=== PATIENT | female | born 1980 | race African-American/Black ===

== ENCOUNTER 2019-12-01 10:08 | Emergency (ER) | payer SELFPAY ==
--- NOTE | 2019-12-01 10:28 | ER Document Report ---
HPI - HPI Onset: Yesterday Onset/Duration: Gradual Severity: Mild Context: 39-year-old female presented to ED for cough congestion, runny nose, fever, headache, body aches, abdominal pain, nausea vomiting, shortness of breath with tightness. She does smoke a pack a day and has a history of bronchitis. The patient was evaluated during the global Covid 19 pandemic, and that diagnosis was suspected/considered upon their initial presentation. Their evaluation, treatment and testing was consistent with current guidelines for patients who present with complaints or symptoms that may be related to Covid 19. Associated Symptoms: Body/muscle aches, Nonproductive cough, Fever, Headache, Nausea, Vomiting, Rhinnorhea, Shortness of breath, Other - [place] pain Exacerbated by: Denies Relieved by: Denies Similar symptoms previously: No - CONSTITUTIONAL Constitutional: REPORTS: Fever, Chills - EENT EENT: REPORTS: Nasal Drainage-Purulent, Congestion - NEURO Neurology: REPORTS: Headache - RESPIRATORY Respiratory: REPORTS: Coughing - GASTROINTESTINAL Gastrointestinal: REPORTS: Patient vomiting. DENIES: Diarrhea - REPRODUCTIVE Reproductive: DENIES: : - MUSCULOSKELETAL Notes: Body aches - DERM Skin Color: Normal Skin Problems: None Past Medical History - General Information source: Patient - Social History Smoking Status: Current Every Day Smoker Cigarette use (# per day): Yes - ppd Smoking Education Provided: Yes - 4 min Lives with: Family Family History: CAD, CVA, DM, Hyperlipidemia, Hypertension, Malignancy, Thyroid Disfunction Pulmonary Medical History: Reports: Hx Bronchitis Neurological Medical History: Reports: Hx Migraine Renal/ Medical History: Reports: Hx Ovarian Cysts Past Surgical History: Reports: Hx Tubal Ligation - Immunizations Immunizations up to date: Yes Hx Diphtheria, Pertussis, Tetanus Vaccination: Yes Vertical Provider Document - CONSTITUTIONAL Agree With Documented VS: Yes - INFECTION CONTROL TRAVEL OUTSIDE OF THE [place] IN LAST 30 DAYS: No - HEENT HEENT: Atraumatic Notes: Rhinorrhea, postnasal drip, planes of itchy eyes - RESPIRATORY Respiratory: Breath Sounds Normal, No Respiratory Distress, Chest Non-Tender - CARDIOVASCULAR Cardiovascular: Regular Rate, Regular Rhythm - GI/ABDOMEN Gastrointestinal: Abdomen Soft, Abdomen Non-Tender, No Organomegaly, Normal Bowel Sounds - NEURO Level of Consciousness: Awake, Alert, Appropriate - DERM Integumentary: Warm, Dry Course - Re-evaluation Re-evalutation: 12/01/19 10:45 Patient presents with upper respiratory symptoms. Patient does not have emergency worring symptoms such as difficulty breathing, shortness of breath, chest pain, pressure, confusion or cyanosis. Patient appears suitable for discharge. Patient's vital signs are stable and patient is nontoxic in appearance. Good return precautions have been discussed with patient, patient verbalized understanding and is agreeable with discharge plan of care at this time. 12/01/19 10:47 12/01/19 12:23 Discharge - Discharge Clinical Impression: Viral respiratory illness Condition: Stable Disposition: HOME, SELF-CARE Additional Instructions: UPPER RESPIRATORY ILLNESS: You have a viral infection of the respiratory passages -- a "cold." This common infection causes nasal congestion, drainage, and often sore throat and cough. It is highly contagious. The disease usually lasts about 10 to 14 days. There is no "cure" for the viral infection -- it must run its course. If there is a complication, such as bacterial infection in the nose, sinuses, middle ear, or bronchial tubes, antibiotics may be required. The antibiotics won't affect the virus. Drink plenty of fluids. A humidifier may help. An expectorant medication or decongestant may make you more comfortable. Use acetaminophen or ibuprofen for fever or aches. See the doctor if fever persists over two days, if there is any significant worsening of your symptoms, or if you simply fail to improve as expected. You have been recommended treatment with Claritin 10 mg Sudafed 30 mg and Mucinex 600 mg. These are all glze-njn-mcbcfyz medications for cough cold congestion. You do need to call the go to the pharmacist to get the Sudafed from behind the counter please get a little red pills they are more effective. You could also use Flonase which is dtqk-[id number]-odjcfls 1 spray each nostril twice a day. You could also use salt soda solution gargles. These will help to remove the drainage from the back your throat. Chloraseptic spray was qmfr-gny-yndndok that will also help with your sore throat. Salt and soda solution gargle 1 quart of water 1 tablespoon of salt 1 teaspoon of baking soda Mixed 3 ingredients together and boil for 1 minute Placed in a covered quart jar Use 1/2 ounce of cold solution to gargle 3 times a day USE OF ACETAMINOPHEN (Tylenol): Acetaminophen may be taken for pain relief or fever control. It's much safer than aspirin, offering a wider range of "safe" dosages. It is safe during . Some brand names are Tylenol, Panadol, Datril, Anacin 3, Tempra, and Liquiprin. Acetaminophen can be repeated every four hours. The following are maximum recommended dosages: >89 pounds or adults 650 mg to 900 mg Acetaminophen can be repeated every four hours. Maximum dose not to exceed 4000 mg a day. SMOKING: If you smoke, you should stop smoking. The tar and chemicals in cigarette smoke are harmful. Smoking has been shown to cause: emphysema chronic bronchitis lung cancer mouth and throat cancer stomach and pancreas cancer premature aging defects In addition, smoking increases ear and lung infections in children of smokers. FOLLOW-UP CARE: If you have been referred to a physician for follow-up care, call the physicians office for an appointment as you were instructed or within the next two days. If you experience worsening or a significant change in your symptoms, notify the physician immediately or return to the Emergency Department at any time for re-evaluation. Referrals: LOCALMD,NO [Primary Care Provider] - Follow up as needed
[2019-12-01 10:56] VITALS: BP 108/58
[2019-12-01 12:19] LABS: A TYPE INFLUENZA AG NEGATIVE (NEGATIVE); B INFLUENZA AG NEGATIVE (NEGATIVE)
== END 2019-12-01 14:59 | disposition home or self-care (01) ==
LOC: EDRDC 10:08
DX: J98.8 Other specified respiratory disorders (principal); B97.89 Other viral agents as the cause of diseases classified elsewhere; Z20.828 Contact with and (suspected) exposure to other viral communicable diseases; R05 Cough; R50.9 Fever, unspecified; R51 Headache; R10.9 Unspecified abdominal pain; R11.2 Nausea with vomiting, unspecified; R06.02 Shortness of breath; M79.10 Myalgia, unspecified site; R09.82 Postnasal drip; J34.89 Other specified disorders of nose and nasal sinuses; F17.210 Nicotine dependence, cigarettes, uncomplicated; Z71.6 Tobacco abuse counseling
CPT/HCPCS: 87070; 87635; 87804; 87880; 99201

== ENCOUNTER 2020-03-15 12:30 | Emergency (ER) | payer BC, SELFPAY ==
[2020-03-15] MEDS ORDERED: NORMAL SALINE 1000 ML 1,000 ML IV ONE (13:11)
[2020-03-15] MEDS ORDERED: METOCLOPRAMIDE HCL INJ/PF 10 MG/2 ML SDV IV ONE (13:12)
--- NOTE | 2020-03-15 13:15 | ER Document Report ---
ED GI/ - General Chief Complaint: Diarrhea Stated Complaint: ABDOMINAL PAIN/DIARRHEA Time Seen by Provider: 03/15/20 13:08 Mode of Arrival: Ambulatory Notes: This a 39-year-old female presented to the emergency room today stating she had upper abdominal discomfort which is been intermittent over the last 4 to 5 days she noticed that more so today while she was at work it is associated with some alternating constipation and diarrhea she has no nausea no vomiting she has no difference in appetite TRAVEL OUTSIDE OF THE [place] IN LAST 30 DAYS: No - HPI Patient complains to provider of: Abdominal pain, Diarrhea - Alternating with constipation Onset: Other - 4 to 5 days - Related Data Allergies/Adverse Reactions: Penicillins Allergy (Unknown, Verified 03/15/20 13:20) Past Medical History - General Information source: Patient - Social History Smoking Status: Current Every Day Smoker Cigarette use (# per day): Yes - 20 Chew tobacco use (# tins/day): No Smoking Education Provided: Yes Frequency of alcohol use: Occasional Drug Abuse: None Family History: CAD, CVA, DM, Hyperlipidemia, Hypertension, Malignancy, Thyroid Disfunction Pulmonary Medical History: Reports: Hx Bronchitis Neurological Medical History: Reports: Hx Migraine Renal/ Medical History: Reports: Hx Ovarian Cysts Past Surgical History: Reports: Hx Tubal Ligation - Immunizations Immunizations up to date: Yes Hx Diphtheria, Pertussis, Tetanus Vaccination: Yes Review of Systems - Review of Systems Constitutional: Malaise EENT: No symptoms reported Cardiovascular: No symptoms reported Respiratory: No symptoms reported Gastrointestinal: Diarrhea, Nausea Genitourinary: No symptoms reported Female Genitourinary: No symptoms reported Musculoskeletal: No symptoms reported Skin: No symptoms reported Hematologic/Lymphatic: No symptoms reported Neurological/Psychological: No symptoms reported Physical Exam - Vital signs Vitals: Temp Pulse Resp BP Pulse Ox 99.1 F 82 16 119/86 H 100 03/15/20 12:59 03/15/20 12:59 03/15/20 12:59 03/15/20 12:59 03/15/20 12:59 Interpretation: Normal - General General appearance: Appears well, Alert - HEENT Head: Normocephalic, Atraumatic Eyes: Normal Pupils: PERRL - Respiratory Respiratory status: No respiratory distress Chest status: Nontender Breath sounds: Normal Chest palpation: Normal - Cardiovascular Rhythm: Regular Heart sounds: Normal auscultation Murmur: No - Abdominal Inspection: Normal Distension: No distension Bowel sounds: Normal Tenderness: Nontender, Other - She describes the discomfort as upper right quadrant in nature when she has it.. No: Tender, McBurney's point, Oh's sign, Guarding Organomegaly: No organomegaly - Back Back: Normal, Nontender - Extremities General upper extremity: Normal inspection, Nontender, Normal color, Normal ROM, Normal temperature General lower extremity: Normal inspection, Nontender, Normal color, Normal ROM, Normal temperature, Normal weight bearing. No: Andrews's sign - Neurological Neuro grossly intact: Yes Cognition: Normal Orientation: AAOx4 [place]coe Coma Scale Eye Opening: Spontaneous Roscoe Coma Scale Verbal: Oriented Fifi Coma Scale Motor: Obeys Commands Roscoe Coma Scale Total: 15 Speech: Normal Motor strength normal: LUE, RUE, LLE, RLE Sensory: Normal - Psychological Associated symptoms: Normal affect, Normal mood - Skin Skin Temperature: Warm Skin Moisture: Dry Skin Color: Normal Course - Re-evaluation Re-evalutation: 03/15/20 17:43 Patient is resting comfortably in the room we discussed the findings of her CT she states that she knows she has a hemangioma and a mass by her liver she has had a tested and it is negative I told her that she must follow-up with that and have it reimaged again. And that we would be referring her to a GI specialist. She does have a MEDICAL ORDERLY she sees Dr. Uribe she was advised that she need to follow-up with Dr. Uribe and 3 to 4 weeks so they can consider reimaging the ovarian area. She was also referred to the health department she was told that she needed a routine physician she needed to follow-up with for definitive radiology readings and follow-up on all accounts until complete resolution as well as all general routine health needs. She was advised that anyone of these lesions could be anything from an incidental finding leading up to and including a carcinoma which could potentially lead to a fatal outcome. - Vital Signs Vital signs: Temp Pulse Resp BP Pulse Ox 99.1 F 82 16 119/86 H 100 03/15/20 12:59 03/15/20 12:59 03/15/20 12:59 03/15/20 12:59 03/15/20 12:59 - Laboratory Result Diagrams: 03/15/20 13:30 03/15/20 13:30 Laboratory results interpreted by me: 03/15/20 03/15/20 13:30 13:30 Total Protein 8.4 H Albumin 5.3 H Urine Ketones 20 H Labs- All tests 24 hr 03/15/20 03/15/20 03/15/20 13:30 13:30 13:30 WBC 5.9 RBC 4.37 Hgb 14.4 Hct 42.0 MCV 96 MCH 32.9 MCHC 34.3 RDW 13.0 Plt Count 215 Lymph % (Auto) 29.2 [place] % (Auto) 5.7 Eos % (Auto) 1.1 Baso % (Auto) 0.5 Absolute Neuts (auto) 3.7 Absolute Lymphs (auto) 1.7 Absolute Monos (auto) 0.3 Absolute Eos (auto) 0.1 Absolute Basos (auto) 0.0 Seg Neutrophils % 63.5 Sodium 137.5 Potassium 4.6 Chloride 102 Carbon Dioxide 27 Anion Gap 9 BUN 11 Creatinine 0.82 Est GFR ( Amer) > 60 Est GFR (MDRD) Non-Af > 60 Glucose 87 Calcium 10.1 Total Bilirubin 0.9 Direct Bilirubin 0.0 Neonat Total Bilirubin Not Reportable Neonat Direct Bilirubin Not Reportable Neonat Indirect Bili Not Reportable AST 29 ALT 18 Alkaline Phosphatase 62 Total Protein 8.4 H Albumin 5.3 H Urine Color YELLOW Urine Appearance CLEAR Urine pH 5.0 Ur Specific Hannah 1.027 Urine Protein NEGATIVE Urine Glucose (UA) NEGATIVE Urine Ketones 20 H Urine Blood NEGATIVE Urine Nitrite NEGATIVE Urine Bilirubin NEGATIVE Urine Urobilinogen NEGATIVE Ur Leukocyte Esterase NEGATIVE Urine WBC (Auto) 1 Urine RBC (Auto) 0 Urine Bacteria (Auto) TRACE Squamous Epi Cells Auto 1 Urine Mucus (Auto) OCC Urine Ascorbic Acid NEGATIVE - Diagnostic Test Radiology results interpreted by me: 03/15/20 17:45 Abdomen/Pelvis CT 03/15/20 13:53 IMPRESSION: 1. No bowel obstruction. Wall thickening at the distal small bowel, suggestive of enteritis. 2. 4.4 cm cystic lesion at the left adnexa. Follow-up with pelvic ultrasound in 6-12 weeks to ensure resolution. 3. Trace free pelvic fluid. 4. 1.5 cm hypodense lesion with peripheral enhancement at the right hepatic lobe, probably corresponding to previously described hemangioma. Additional enhancing foci at the right and left hepatic lobes, may represent flash filling hemangiomas. Follow-up dedicated CT liver in 3-6 months recommended to ensure stability and exclude a different etiology. Discharge - Discharge Clinical Impression: Nausea vomiting and diarrhea Condition: Fair Disposition: HOME, SELF-CARE Instructions: Diarrhea, Nonspecific ([facility]), Reglan ([facility]), Vomiting ([facility]) Additional Instructions: Patient must follow-up with Dr. Uribe in 3 to 4 weeks to set up repeat imaging of the ovarian area. Patient is also been referred to Dr. Joseph for follow-up imaging of the lesion by her liver. Patient was advised to follow-up with a primary doctor to quarterback any and all healthcare needs including the above findings and all other needs that may arise and that she certainly needs to make sure that the above findings are followed through until complete resolution and that failure to do so if the lesions were malignant could lead to a poor outcome including of their cancers Prescriptions: Metoclopramide HCl [Reglan 10 mg Tablet] 10 mg PO ACHS #120 tablet Referrals: HEALTH DEPT,[facility] [NO LOCAL MD] - Follow up as needed
[2020-03-15 14:08] LABS: ABSOLUTE EOSINOPHILS # (AUTO) 0.1 10^3/uL (0.0-0.6); ABSOLUTE LYMPHOCYTES (AUTO) 1.7 10^3/uL (0.5-4.7); ABSOLUTE MONOCYTES (AUTO) 0.3 10^3/uL (0.1-1.4); ABSOLUTE NEUT (AUTO) 3.7 10^3/uL (1.7-8.2); BASOPHILS % (AUTO) 0.5 % (0-2); EOSINOPHILS % (AUTO) 1.1 % (0-6); HEMOGLOBIN 14.4 g/dL (12.0-15.5); LYMPHOCYTES % (AUTO) 29.2 % (13-45); MEAN CORPUSCULAR HEMOGLOBIN 32.9 pg (27.0-33.4); MEAN CORPUSCULAR HGB CONC 34.3 g/dL (32.0-36.0); MEAN CORPUSCULAR VOLUME 96 fl (80-97); MONOCYTES % (AUTO) 5.7 % (3-13); PLATELET COUNT 215 10^3/uL (150-450); RED BLOOD COUNT 4.37 10^6/uL (3.72-5.28); SEGMENTED NEUTROPHILS % (AUTO) 63.5 % (42-78); TOTAL CELLS COUNTED % (AUTO) 100 %; WHITE BLOOD COUNT 5.9 10^3/uL (4.0-10.5)
[2020-03-15 14:14] LABS: APPEARANCE,URINE CLEAR; BILIRUBIN,URINE NEGATIVE (NEGATIVE); COLOR,URINE YELLOW; GLUCOSE, URINE NEGATIVE (NEGATIVE); KETONES,URINE 20 mg/dL (NEGATIVE); LEUKOCYTE ESTERASE,URINE NEGATIVE (NEGATIVE); NITRITE,URINE NEGATIVE (NEGATIVE); PROTEIN,URINE NEGATIVE (NEGATIVE); URINE SPECIFIC GRAVITY 1.027; UROBILINOGEN,URINE NEGATIVE mg/dL (<2.0)
[2020-03-15 14:27] LABS: ALBUMIN 5.3 g/dL (3.5-5.0); ALKALINE PHOSPHATASE 62 U/L (38-126); ANION GAP 9 (5-19); ASPARTATE AMINO TRANSFERASE 29 U/L (14-36); BILIRUBIN,TOTAL 0.9 mg/dL (0.2-1.3); BLOOD UREA NITROGEN 11 mg/dL (7-20); CALCIUM 10.1 mg/dL (8.4-10.2); CARBON DIOXIDE 27 mmol/L (22-30); CHLORIDE 102 mmol/L (98-107); GLUCOSE 87 mg/dL (75-110); POTASSIUM 4.6 mmol/L (3.6-5.0); TOTAL PROTEIN 8.4 g/dL (6.3-8.2)
--- NOTE | 2020-03-15 17:35 | RADIOLOGY REPORT (SQ) ---
EXAM DESCRIPTION: CT ABD/PELVIS WITH IV ORAL IMAGES COMPLETED DATE/TIME: 03/15/2020 5:03 pm REASON FOR STUDY: pain Diffuse abdominal pain. Prior hysterectomy. COMPARISON: CT abdomen and pelvis 03/21/2015, 02/20/2013. MRI abdomen 04/24/2013. TECHNIQUE: CT scan of the abdomen and pelvis performed using helical scanning technique with dynamic intravenous contrast injection and with oral contrast. Images reviewed with lung, soft tissue, and b one windows. Reconstructed coronal and sagittal MPR images reviewed. Delayed images for evaluation of the urinary system also acquired. All images stored on PACS. All CT scanners at this facility use dose modulation, iterative reconstruction, and/or weight based d osing when appropriate to reduce radiation dose to as low as reasonably achievable (ALARA). [facility]: Dose Right [facility]: CareDose [facility]: Dose Right [facility]: Teradose 4D [facility]: [employer] CONTRAST TYPE AND DOSE: contrast/concentration: Isovue 350.00 mmol/ml; Total Contrast Delivered: 69. 0 ml; Total Saline Delivered: 65.0 ml RENAL FUNCTION: Creatinine 0.82 RADIATION DOSE: CT Rad equipment meets quality standard of care and radiation dose reduction techniq ues were employed. CTDIvol: 4.8 - 5.2 mGy. DLP: 491 mGy-cm.. LIMITATIONS: None. FINDINGS: LOWER CHEST: No consolidation or pleural effusion. LIVER: There is a 1.5 x 1.5 cm hypodense area with peripheral enhancement at the right hepatic lobe, segment 7/6, may correspond to known hemangioma. There is a 1.0 cm focus of enhancement at the infer ior right hepatic lobe, segment 5/6, and a 0.9 cm focus of enhancement at the anterior left hepatic l obe, segment 2/3. These become isodense on the delayed phase of imaging. Additional subcentimeter s cattered hypodense areas are noted at the liver. SPLEEN: Normal size. PANCREAS: No significant calcifications. No adjacent inflammation or peripancreatic fluid collections . Pancreatic duct not dilated. GALLBLADDER: No identified stones by CT criteria. No inflammatory changes to suggest cholecystitis. ADRENAL GLANDS: No significant masses or asymmetry. RIGHT KIDNEY AND URETER: No solid masses. No significant calcifications. No hydronephrosis or hyd roureter. LEFT KIDNEY AND URETER: No solid masses. No significant calcifications. No hydronephrosis or hydr oureter. AORTA AND VESSELS: No abdominal aortic aneurysm or acute dissection. There is a circumaortic left re nal vein. RETROPERITONEUM: No retroperitoneal adenopathy, hemorrhage or masses. BOWEL AND PERITONEAL CAVITY: No evidence for bowel obstruction. The oral contrast has reached the re ctum. There is wall thickening at the distal small bowel. No ascites or pneumoperitoneum. APPENDIX: Normal. PELVIS: The uterus is surgically absent. There is a 3.8 x 4.4 cm cystic lesion at the left adnexa. The urinary bladder is partially distended. There is trace free pelvic fluid. ABDOMINAL WALL: No hernias. BONES: No significant or acute findings. IMPRESSION: 1. No bowel obstruction. Wall thickening at the distal small bowel, suggestive of ent eritis. 2. 4.4 cm cystic lesion at the left adnexa. Follow-up with pelvic ultrasound in 6-12 weeks to ensur e resolution. 3. Trace free pelvic fluid. 4. 1.5 cm hypodense lesion with peripheral enhancement at the right hepatic lobe, probably correspond ing to previously described hemangioma. Additional enhancing foci at the right and left hepatic lobe s, may represent flash filling hemangiomas. Follow-up dedicated CT liver in 3-6 months recommended t o ensure stability and exclude a different etiology. TECHNICAL DOCUMENTATION: JOB ID: [id number] Quality ID # [id number]: Final reports with documentation of one or more dose reduction techniques (e.g., Au tomated exposure control, adjustment of the mA and/or kV according to patient size, use of iterative reconstruction technique) 2010 [employer]- All Rights Reserved Reading location - IP/workstation name: [email or web address]
[2020-03-15 17:59] VITALS: BP 154/106
== END 2020-03-15 18:04 | disposition home or self-care (01) ==
LOC: ER 12:30
DX: R19.7 Diarrhea, unspecified (principal); R11.2 Nausea with vomiting, unspecified; K59.00 Constipation, unspecified; N94.89 Other specified conditions associated with female genital organs and menstrual cycle; D18.00 Hemangioma unspecified site; R53.81 Other malaise; F17.210 Nicotine dependence, cigarettes, uncomplicated; Z88.0 Allergy status to penicillin
CPT/HCPCS: 99284; 96361; 96374; 36415; 85025; 80053; 81001; 74177; J2765; J7030